=== PATIENT | female | born 1985 | race Caucasian/White ===

== ENCOUNTER 2018-11-03 12:31 | Emergency (ER) | payer OTHER ==
[2018-11-03 12:44] VITALS: BP 102/57; PULSE 77; TEMP 98.1; BMI 28.5
--- NOTE | 2018-11-03 12:50 | PDOC ---
Attending Attestation - HPI HPI: 11/03/18 13:30 The patient is a 32 year old female with a past medical history of migraines here today for evaluation of migraine. The patient reports that she gets migraines about every 3 months and that one she currently has is worse than any other migraine she had. She reports being and reports that her other pregnancies were full term and were normal. She notes associated nausea and numbness over the back of head. Patient denies lightheadedness. Denies fever, chills. Denies chest pain, shortness of breath. Denies vomiting, diarrhea, abdominal pain. Allergies: NKA - Medical Decision Making 11/03/18 13:30 Documentation prepared by KISHORE Romo, acting as medical assistant cardiology for Jaqueline Matthew MD. <Victor M Linares - Last Filed: 11/03/18 13:30> - Resident Resident Name: Victor M Velasquez - ED Attending Attestation I have performed the following: I have examined & evaluated the patient, The case was reviewed & discussed with the resident, I agree w/resident's findings & plan, Exceptions are as noted - Physicial Exam PE: GENERAL: Awake, alert, and fully oriented, in no acute distress HEAD: No signs of trauma EYES: PERRLA, EOMI, sclera anicteric, conjunctiva clear ENT: Auricles normal inspection, hearing grossly normal, nares patent, oropharynx clear without exudates. Moist mucosa NECK: Normal ROM, supple, no lymphadenopathy, JVD, or masses. No meningismus. LUNGS: Breath sounds equal, clear to auscultation bilaterally. No wheezes, and no crackles HEART: Regular rate and rhythm, normal S1 and S2, no murmurs, rubs or gallops ABDOMEN: Soft, nontender, normoactive bowel sounds. No guarding, no rebound. No masses EXTREMITIES: Normal range of motion, no edema. No clubbing or cyanosis. No cords, erythema, or tenderness NEUROLOGICAL: Cranial nerves II through XII grossly intact. Normal speech, normal gait. Motor and sensation intact SKIN: Warm, Dry, normal turgor, no rashes or lesions noted. - Medical Decision Making Patient given IV tylenol and reglan in ED, with some relief, but not complete. Will discuss with neuro, as this is worse than her typical migraines and she is 30 WGA. <Jaqueline Matthew - Last Filed: 11/03/18 16:21>
[2018-11-03] MEDS ORDERED: ACETAMINOPHEN 1000 MG/100 ML VIAL (NON FORMULARY) IVPB ONE (13:31)
[2018-11-03] MEDS ORDERED: METOCLOPRAMIDE HCL INJECTION 10 MG/2 ML VIAL IVPUSH ONE (13:32)
[2018-11-03] MEDS ORDERED: SODIUM CHLORIDE 1,000 ML IV STA (13:32)
--- NOTE | 2018-11-03 13:39 | PDOC ---
History of Present Illness - General Chief Complaint: Headache Stated Complaint: HEADACHE Time Seen by Provider: 11/03/18 12:45 History Source: Patient Exam Limitations: No Limitations - History of Present Illness Initial Comments: Patient is a 32 y/o F (prior pregnancies resulted in full term without complication) w/ PMHx migraine, presents with migraine x 1 week. Pain has been unremitting and gotten progressively worse since onset, and is accompanied by photophobia. She began experiencing nausea and vomiting 5 days into symptoms and experienced aura yesterday. Pain is diffuse throughout the head without focality, however she additionally c/o numbness in the back of the head exacerbated by neck flexion; the last of these symptoms is divergent from her usual migraine presentation. She has taken Fioricet for the past 4 days without relief. Attempted therapy with sumatriptan but vomited it almost immediately. Denies any neck stiffness/rigidity/tenderness, denies any focal neurologic complaints, denies CP, dysuria, oliguria, edema. She is normotensive on presentation. In general she experiences migraine ~every three months. This is the first occurrence of migraine during this ; in prior two pregnancies, migraine occurred in the first trimester, was less severe, and was aborted with prednisone. Prednisone is also her usual migraine therapy when she is not . 11/03/18 13:33 Past History - Travel Traveled outside of the country in the last 30 days: No Close contact w/someone who was outside of country & ill: No - Past Medical History Allergies/Adverse Reactions: Allergies Allergy/AdvReac Type Severity Reaction Status Date / Time No Known Allergies Allergy Verified 11/03/18 12:42 Home Medications: Ambulatory Orders Butalb/Acetaminophen/Caffeine [Fioricet 50-300-40 mg Capsule] 1 each PO PRN PRN 11/03/18 Metoclopramide HCl 10 mg PO DAILY PRN 11/03/18 Vitamins (Sjr) - 1 tab PO DAILY 11/03/18 Asthma: No Cancer: No Cardiac Disorders: No Diabetes: No HTN: No Seizures: No Thyroid Disease: No - Suicide/Smoking/Psychosocial Hx Smoking History: Unknown if ever smoked Hx Alcohol Use: No Drug/Substance Use Hx: No Hx Substance Use Treatment: No Neuro Specific PMHX - Complaint Specific PMHX Glaucoma: No Herniated Disk: No Laminectomy: No Migraine: Yes Multiple Sclerosis: No Neuropathy: No TIA: No Review of Systems - Review of Systems Comments:: As per HPI 11/03/18 13:39 *Physical Exam - Vital Signs Last Vital Signs Temp Pulse Resp BP Pulse Ox 98.1 F 77 18 102/57 L 99 11/03/18 12:42 11/03/18 12:42 11/03/18 12:42 11/03/18 12:42 11/03/18 12:42 - Physical Exam Comments: Gen: A&Ox3, NAD HEENT: NC/AT, EOMI, MMM, no TTP of cranial/facial bones Neck: Supple, non-tender, no rigidity/stiffness, occipital numbness (but not pain) exacerbated by neck flexion CV: RRR no m/r/g Resp: CTA b/l Abd: soft, NT, ND Ext: 2+ pulses, wwp, no edema, no calf tenderness Neuro: margin analyst, motor, sensory systems w/o focal deficit Psych: normal mood, normal affect Skin: warm, dry, normal turgor 11/03/18 13:39 Moderate Sedation - Procedure Monitoring Vital Signs: Procedure Monitoring Vital Signs Temperature 98.1 F 11/03/18 12:42 Pulse Rate 77 11/03/18 12:42 Respiratory Rate 18 11/03/18 12:42 Blood Pressure 102/57 L 11/03/18 12:42 O2 Sat by Pulse Oximetry (%) 99 11/03/18 12:42 ED Treatment Course - LABORATORY CBC & Chemistry Diagram: 11/03/18 14:38 11/03/18 14:38 Medical Decision Making - Medical Decision Making Concerning etiologies for headache in include pre-eclampsia and intracranial bleed. Pre-eclampsia is ruled out by normotensive blood pressure. Absence of focal neurologic and meningeal signs is reassuring that there is no intracranial bleed. Imaging can therefore be deferred at this time. The patient has failed fioricet therapy and additionally can no longer safely take it at this time. Will treat with IV Reglan, IV acetaminophen, and IVF bolus at this time. Ordered CBC, CMP, UA. 11/03/18 13:43 Experiencing only partial relief with medication as per above. Will consult neurology. 11/03/18 15:07 All labs normal. D/w Dr. Chapman. No need for neuroimaging. Will give PO oxycodone and discharge with outpt neurology f/u. 11/03/18 18:03 D/w Dr. Damico. Will prescribe short course of Percocet and Reglan. 11/03/18 18:11 *DC/Admit/Observation/Transfer Diagnosis at time of Disposition: Migraine Qualifiers: Migraine type: with aura - Discharge Dispostion Disposition: HOME Condition at time of disposition: Stable - Referrals Referrals: Danika Chapman MD [Staff Physician] - Robbie Damico MD [Staff Physician] - - Patient Instructions Printed Discharge Instructions: DI for Migraine Additional Instructions: We have scheduled outpatient neurology followup for you with Dr. Chapman. Please see him at your earliest convenience within 1 week of discharge. Please follow up with your OBGYN Dr. Damico as well. We have prescribed a short course of Percocet to your pharmacy. Do not take more than 2 tablets per day. You may take tylenol with this medication. If your migraine significantly worsens, if nausea/vomiting worsen, if you develop any neurological symptoms such as focal weakness or numbness, if you develop any neck pain or stiffness, or develop any other new or concerning symptom, please return to the Emergency Department immediately. - Post Discharge Activity
[2018-11-03] MEDS ORDERED: METOCLOPRAMIDE HCL INJECTION 10 MG/2 ML VIAL ONE (14:24)
[2018-11-03] MEDS ORDERED: ACETAMINOPHEN INJECTION 100 ML IVPB ONE (14:24)
[2018-11-03 14:48] LABS: BASO % 0.3 % (0-2.0); EOS % 1.7 % (0-4.5); HEMATOCRIT 31.9 % (32.4-45.2); HEMOGLOBIN 11.2 GM/dL (10.7-15.3); LYMPH % 16.4 % (8-40); MCH 30.8 pg (25.7-33.7); MCHC 35.2 g/dl (32.0-36.0); MEAN CELL VOLUME 87.5 fl (80-96); MONO % 5.2 % (3.8-10.2); NEUT % 76.4 % (42.8-82.8); PLATELET COUNT 225 K/MM3 (134-434); RBC 3.64 M/mm3 (3.60-5.2); RDW 13.5 % (11.6-15.6)
[2018-11-03 15:22] LABS: ALBUMIN 2.8 g/dl (3.4-5.0); ALK PHOS 72 U/L (45-117); ANION GAP 6 MMOL/L (8-16); BILIRUBIN,TOTAL 0.4 mg/dL (0.2-1); BLOOD UREA NITROGEN 6 mg/dL (7-18); CALCIUM 7.3 mg/dL (8.5-10.1); CHLORIDE 107 mmol/L (98-107); CO2 25 mmol/L (21-32); CREATININE 0.4 mg/dL (0.55-1.3); GLUCOSE,RANDOM 77 mg/dL (74-106); POTASSIUM 3.7 mmol/L (3.5-5.1); SGOT/AST 13 U/L (15-37); SGPT/ALT 15 U/L (13-61); SODIUM 138 mmol/L (136-145); TOT PROT 5.8 g/dl (6.4-8.2)
[2018-11-03] MEDS ORDERED: oxyCODONE HCL 5 MG TABLET PO ONE (18:03)
--- NOTE | 2018-11-03 18:14 | PDOC ---
*Physical Exam - Vital Signs Last Vital Signs Temp Pulse Resp BP Pulse Ox 98.1 F 77 18 102/57 L 99 11/03/18 12:42 11/03/18 12:42 11/03/18 12:42 11/03/18 12:42 11/03/18 12:42 ED Treatment Course - LABORATORY CBC & Chemistry Diagram: 11/03/18 14:38 11/03/18 14:38 - ADDITIONAL ORDERS Additional order review: Laboratory Results 11/03/18 14:38 Sodium 138 Potassium 3.7 Chloride 107 Carbon Dioxide 25 Anion Gap 6 L BUN 6 L Creatinine 0.4 L Creat Clearance w eGFR > 60 Random Glucose 77 Calcium 7.3 L Total Bilirubin 0.4 AST 13 L ALT 15 Alkaline Phosphatase 72 Total Protein 5.8 L Albumin 2.8 L 11/03/18 14:38 RBC 3.64 MCV 87.5 MCHC 35.2 RDW 13.5 MPV 7.0 L D Neutrophils % 76.4 Lymphocytes % 16.4 D Monocytes % 5.2 Eosinophils % 1.7 D Basophils % 0.3 - Medications Given in the ED: ED Medications Discontinued Medications Generic Name Dose Route Start Last Admin Trade Name Yusufq PRN Reason Stop Dose Admin Acetaminophen 1,000 mg 11/03/18 13:31 11/03/18 14:36 Ofirmev Injection - IVPB 11/03/18 13:32 1,000 mg ONCE ONE Administration Sodium Chloride 1,000 mls @ 1,000 mls/hr 11/03/18 13:32 11/03/18 14:36 Normal Saline - IV 11/03/18 14:31 1,000 mls/hr ASDIR STA Administration Metoclopramide HCl 10 mg 11/03/18 13:32 11/03/18 14:36 Reglan Injection - IVPUSH 11/03/18 13:33 10 mg ONCE ONE Administration Medical Decision Making - Medical Decision Making 11/03/18 18:09 Dr Chapman came to see this patient who is 30 weeks and has examined her and does not feel imaging study is needed at this time I spoke with Dr Damico and he agrees with a few days of percocet and a RX for reglan -she is going to follow up with Dr Chapman *DC/Admit/Observation/Transfer Diagnosis at time of Disposition: Migraine Qualifiers: Migraine type: with aura - Discharge Dispostion Disposition: HOME Condition at time of disposition: Stable - Referrals Referrals: Robbie Damico MD [Staff Physician] - Danika Chapman MD [Staff Physician] - - Patient Instructions Printed Discharge Instructions: DI for Migraine Additional Instructions: We have scheduled outpatient neurology followup for you with Dr. Chapman. Please see him within 1 week of discharge. Please follow up with your OBGYN as well. If your migraine significantly worsens, if nausea/vomiting worsen, if you develop any neurological symptoms such as focal weakness or numbness, if you develop any neck pain or stiffness, or develop any other new or concerning symptom, please return to the Emergency Department immediately. - Post Discharge Activity
--- NOTE | 2018-11-03 18:18 | CON.NEURO ---
Consult Consult Specialty:: Adela Referred by:: ER - History of Present Illness History of Present Illness: this is a very pleasant 32-year-old right-handed female patient with no essential medical history presents to the hospital with chief complaint of one week of headache. Patient is 30 weeks Was Done in the Emergency Room Patient Was Evaluated by Her SINGER BACK TENDER Doctor Who Prescribed Fioricet. In the Emergency Room Patient with Hemodynamically Stable with No Fever No Neck stiffness no recent headaches no recent travel headache was 7 out of 10 after 1 g of Tylenol IV and Reglan. - History Source History Provided By: Patient - Past Medical History ...: Yes - Alcohol/Substance Use Hx Alcohol Use: No - Smoking History Smoking history: Unknown if ever smoked Home Medications - Allergies Allergies/Adverse Reactions: Allergies Allergy/AdvReac Type Severity Reaction Status Date / Time No Known Allergies Allergy Verified 11/03/18 12:42 - Home Medications Home Medications: Ambulatory Orders Butalb/Acetaminophen/Caffeine [Fioricet 50-300-40 mg Capsule] 1 each PO PRN PRN 11/03/18 Metoclopramide HCl 10 mg PO DAILY PRN 11/03/18 Vitamins (Sjr) - 1 tab PO DAILY 11/03/18 Family Disease History - Family Disease History Family History: Denies (migraine of stroke) Review of Systems - Review of Systems Constitutional: reports: No Symptoms Eyes: reports: No Symptoms, Photophobia HENT: reports: No Symptoms Neurological: reports: Headache, Incoordination, Numbness, Parasthesia Physical Exam-Neuro Vital Signs: Vital Signs Temperature 98.1 F 11/03/18 12:42 Pulse Rate 77 11/03/18 12:42 Respiratory Rate 18 11/03/18 12:42 Blood Pressure 102/57 L 11/03/18 12:42 O2 Sat by Pulse Oximetry (%) 99 11/03/18 12:42 Constitutional: Yes: Well Nourished Neck: Yes: WNL Labs: CBC, BMP 11/03/18 14:38 11/03/18 14:38 - Neuro Exam Level Of Consciousness: Yes: Oriented to Person, Oriented to Place, Oriented to Time Eyes: Yes: PERRLA Speech: WNL Dominant Hand: Left Cranial Nerves II-XII Intact: Yes Gag: Present DTR's: 1+ Left Bicep, 1+ Right Bicep Response to light touch: Normal Response to pain prick: Normal Response to temperature: Normal Response to vibration: Normal Motor Strength: 0/5: Left Leg, 1/5: Left Arm, 2/5: Left Leg, 3/5: Left Leg, 4/5 : Left Leg Problem List - Problems (1) Migraine Assessment/Plan: this is very common to see an exacerbation of history of migraine headache in the second to the third trimester of . Gross neurological examination is nonfocal. 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 I discussed this with the patient and the patient's significant other. Patient agreed not to have any CAT scan or MRI for the safety of the baby although the baby is 30 weeks and he's probably formed and well. One dosage of oxycodone. 2. Repeat magnesium. 3. Stop the Fioricet. 4. Continue vitamins. Follow-up with neurology as an outpatient. Many thanks for this kind neurological referral. Code(s): G43.909 - MIGRAINE, UNSP, NOT INTRACTABLE, WITHOUT STATUS MIGRAINOSUS Qualifiers: Migraine type: with aura
[2018-11-03] MEDS ORDERED: oxyCODONE HCL 5 MG TABLET ONE (18:37)
== END 2018-11-03 18:41 | disposition home or self-care (01) ==
LOC: JER 12:31
DX: G43.109 Migraine with aura, not intractable, without status migrainosus (principal)
CPT/HCPCS: 36415; 80053; 85025; 99282-25; J0131; J7030

== ENCOUNTER 2019-01-06 07:30 | Inpatient (IN) | payer BC, OTHER ==
[2019-01-06 08:34] VITALS: BMI 30.8
[2019-01-06 09:08] LABS: BASO % 0.4 % (0-2.0); EOS % 1.4 % (0-4.5); HEMATOCRIT 36.6 % (32.4-45.2); HEMOGLOBIN 12.5 GM/dL (10.7-15.3); LYMPH % 22.4 % (8-40); MCH 29.2 pg (25.7-33.7); MCHC 34.1 g/dl (32.0-36.0); MEAN CELL VOLUME 85.7 fl (80-96); MEAN PLT VOLUME 7.5 fl (7.5-11.1); MONO % 6.7 % (3.8-10.2); NEUT % 69.1 % (42.8-82.8); PLATELET COUNT 280 K/MM3 (134-434); RBC 4.27 M/mm3 (3.60-5.2); RDW 13.5 % (11.6-15.6); WHITE BLOOD COUNT 6.8 K/mm3 (4.0-10.0)
[2019-01-06 09:29] LABS: INR 0.92 (0.83-1.09); PROTHROMBIN TIME (PATIENT) 10.9 SEC (9.7-13.0)
[2019-01-06 09:32] LABS: ACTIVATED PTT 28.6 SECONDS (25.2-36.5)
[2019-01-06 09:39] LABS: ANION GAP 5 MMOL/L (8-16); BLOOD UREA NITROGEN 6 mg/dL (7-18); CALCIUM 8.6 mg/dL (8.5-10.1); CHLORIDE 104 mmol/L (98-107); CO2 24 mmol/L (21-32); CREATININE 0.5 mg/dL (0.55-1.3); GLUCOSE,RANDOM 74 mg/dL (74-106); SODIUM 134 mmol/L (136-145)
[2019-01-06] MEDS ORDERED: DINOPROSTONE 10 MG VAGINAL SUPPOSITORY VG ONE (09:39)
[2019-01-06] MEDS ORDERED: DEXTROSE 5%-LACTATED RINGERS 1,000 ML IV SCH (09:45)
--- NOTE | 2019-01-06 09:45 | HP ---
Past Medical History - Primary Care Physician PCP:: Robbie Damico - Admission Chief Complaint: 33yo P2 with at EGA 39w2d admitted for labor induction. History of Present Illness: Pt is not in labor and insisted on labor induction complicated by: Anxiety, migraines. Vaginal GBS (-) History Source: Patient, Medical Record Limitations to Obtaining History: No Limitations - Past Medical History GASKET FORMER: Yes: Migraine Cardiovascular: No: AFIB, Aneurysm, Aortic Insufficiency, Aortic Stenosis, CAD, CHF, Deep Vein Thrombosis, HTN, Hyperlipdemia, CT, Mitral Insufficiency, Mitral Stenosis, Murmur, Pulmonary Hypertension, Other Pulmonary: No: Asthma, Bronchitis, Cancer, COPD, O2 Dependent, Pneumonia, Previously Intubated, Pulmonary Embolus, Pulmonary Fibrosis, Sleep Apnea, Other Gastrointestinal: No: Ascites, Cancer, Constipation, Crohn's Disease, Diverticulitis, Diverticulosis, Esophageal Varices, Gastritis, GERD, GI Bleed, Hemorrhoids, Hiatal Hernia, Inflamatory Bowel Disease, Irritable Bowel Disease, Pancreatitis, Peptic Ulcer Disease, Ulcerative Colitis, Other Hepatobiliary: No: Cirrhosis, Cholelithiasis, Cholecystitis, Choledocholithiasis , Hepatitis A, Hepatitis B, Hepatitis C, Other Renal/: No: Renal Failure, Renal Inusuff, BPH, Cancer, Hematuria, Hemodialysis , Neurogenic Bladder, Renal Calculi, UTI, Other Reproductive: No: Ectopic , Endometriosis, Fibroids, PID, Polycystic Ovary Syndrome, Postmenopausal, Other ...: 5 ...Para: 2 ( x 2) ...Term: 0 ...: 0 ...Spon : 0 ...Induced : 2 ...Multiple Gestation: 0 ...LMP: 03/30/18 ... Weeks Gestation by Dates: 40.2 ...EDC by Dates: 01/04/19 ...EDC by Sono: 01/11/19 Heme/Onc: No: Anemia, B12 Deficiency, Bleeding Disorder, Cancer, Current Chemotherapy, Current Radiation Therapy, Hemochromatosis, Hypercoaguable State, Myeloproliferative Synd, Sickle Cell Disease, Sickle Cell Trait, Thrombocytopenia, Other Infectious Disease: No: AIDS, C-Diff, Herpes Zoster, HIV, MRSA, STD's, Tuberculosis, VREF, Other Psych: No: Addictions, Anxiety, Bipolar, Depression, Panic, Psychosis, Schizophrenia, Other Musculoskeletal: No: Bursitis, Chronic low back pain, Hemiparesis, Hemiplegia, Osteoarthritis, Paraplegia, Other Rheumatology: No: Fibromyalgia, Gout, Lupus, Rheumatoid Arthritis, Sarcoidosis, Vasculitis, Other ENT: No: Allergic Rhinitis, Sinusitis, Other Endocrine: No: Artemio's Disease, [place]'s Disease, Diabetes Insipidus, Diabetes Mellitus, Hyperparathyroidism, Hyperthyroidism, Hypothyroidism, Osteopenia, SIADH, Other Dermatology: No: Basal Cell, Cellulitis, Eczema, Melanoma, Psoriasis, Squamous Cell, Other - Past Surgical History Past Surgical History: Yes: None Hx Myomectomy: No Hx Transabdominal Cerclage: No - Smoking History Smoking history: Never smoked - Alcohol/Substance Use Hx Alcohol Use: No History of Substance Use: reports: None - Social History Usual Living Arrangement: Yes: With Significant Other, With Child ADL: Independent 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 History of Recent Travel: No Home Medications - Allergies Allergies/Adverse Reactions: Allergies Allergy/AdvReac Type Severity Reaction Status Date / Time No Known Allergies Allergy Verified 12/25/18 10:40 - Home Medications Home Medications: Ambulatory Orders Butalb/Acetaminophen/Caffeine [Fioricet 50-300-40 mg Capsule] 1 each PO PRN PRN 11/03/18 Metoclopramide HCl 10 mg PO DAILY PRN 11/03/18 Metoclopramide HCl [Reglan -] 10 mg PO BID #6 tablet 11/03/18 Oxycodone HCl/Acetaminophen [Percocet 5-325 mg Tablet] 1 tab PO BID PRN #4 tablet MDD 2 11/03/18 Vitamins (Sjr) - 1 tab PO DAILY 11/03/18 Family Disease History - Family Disease History Family Disease History: Diabetes: Mother (HTN, depression, migraines) Review of Systems - Review of Systems Constitutional: reports: No Symptoms Eyes: reports: No Symptoms HENT: reports: No Symptoms Neck: reports: No Symptoms Cardiovascular: reports: No Symptoms Respiratory: reports: No Symptoms Gastrointestinal: reports: No Symptoms Breasts: reports: No Symptoms Reported Musculoskeletal: reports: No Symptoms Integumentary: reports: No Symptoms Neurological: reports: No Symptoms Endocrine: reports: No Symptoms Hematology/Lymphatic: reports: No Symptoms Psychiatric: reports: No Symptoms Pain Intensity: 0 Physical Exam - Maternity Vital Signs: Vital Signs Temperature 97.8 F 01/06/19 09:00 Pulse Rate 107 H 01/06/19 09:00 Respiratory Rate 20 01/06/19 09:00 Blood Pressure 110/65 01/06/19 09:00 O2 Sat by Pulse Oximetry (%) Constitutional: Yes: Well Nourished, No Distress, Calm Eyes: Yes: WNL, Conjunctiva Clear HENT: Yes: WNL, Atraumatic, Normocephalic Neck: Yes: WNL, Supple, Trachea Midline Cardiovascular: Yes: WNL, Regular Rate and Rhythm Lungs: Clear to auscultation, Normal air movement Breast(s): Yes: WNL - Abdominal Exam/OB Fundal Height: 39 Number of Fetuses: Single Presentation: Vertex Contractions: No Monitor Mode: External Heart Rate (range): 140 Heart Rate Location: Midline Category: I Accelerations: Non-Uniform Decelerations: None - Vaginal Exam/OB Vaginal Bleediing: No Speculum Exam: No Dilatation (cm): 1 Effacement (%): 50 Amniotic Membrane Status: Intact Presentation: Vertex/Position Station: -4 (Adequate, gynecoid pelvimetry) - Physical Exam Musculoskeletal: Yes: WNL Extremities: Yes: WNL Edema: No Integumentary: Yes: WNL Deep Tendon Reflex Grade: Normal +2 ...Motor Strength: WNL Psychiatric: Yes: WNL, Alert, Oriented - Labs Lab Results: CBC, BMP 01/06/19 08:30 01/06/19 08:30 Hemorrhage Risk Assessment - Risk Factors Medium Risk Factors: Yes: None High Risk Factors: Yes: None Risk Score: 1 Risk Level: Medium Risk Imaging - Results Ultrasound: Report Reviewed Assessment/Plan 33yo P2 with at EGA 39w2d admitted for labor induction. Pt is not in labor. Fetus with Category I tracing. Adequate, gynecoid pelvimetry on exam. We had long discussion re: risks, benefits, and alternatives of labor induction. I explained the options of expectant management awaiting spontaneous labor, induction of labor, and elective section. The risks of uterine tachysystole, distress, uterine rupture, need for emergency C/S, hemorrhage, infection, scarring, etc. were discussed. We also discussed the risks of meconium aspiration, shoulder dystocia, and anesthesia options. The pt requested to proceed with induction. We discussed the alternative methods of induction with Cervidil, Cytotec, Folley ballon, and pitocin. The pt prefers Cervidil followed by pitocin, if needed.
[2019-01-06] MEDS ORDERED: BUTORPHANOL TARTRATE 1 MG/ML VIAL IVPB ONE (13:30)
[2019-01-06] MEDS ORDERED: PROMETHAZINE HCL 25 MG/1 ML VIAL IVPB ONE (13:30)
[2019-01-06] MEDS ORDERED: BUTORPHANOL TARTRATE 1 MG/ML VIAL ONE ×2 (14:03)
[2019-01-06] MEDS ORDERED: PROMETHAZINE HCL 25 MG/1 ML VIAL ONE (14:03)
[2019-01-06] MEDS ORDERED: FENTANYL/BUPIVACAINE/NS/PF - PCEA - 50 ML DISP.SYRIN EP ONE (16:43)
[2019-01-06] MEDS ORDERED: BUPIVACAINE HCL/PF 0.25% (2.5MG/ML) 10 ML VIAL ONE (17:02)
[2019-01-06] MEDS ORDERED: NALOXONE HCL 0.4 MG/ML VIAL IVPUSH PRN (18:14)
[2019-01-06] MEDS ORDERED: FENTANYL/BUPIVACAINE/NS/PF - PCEA - 50 ML DISP.SYRIN EP SCH (18:15)
[2019-01-06] MEDS ORDERED: ELECTROLYTE-148 SOLN 1,000 ML IV SCH ×2 (18:15)
[2019-01-06] MEDS ORDERED: LIDOCAINE HCL 1% PRESERVATIVE FREE - 30ML VIAL ONE (19:29)
[2019-01-06] MEDS ORDERED: OXYTOCIN 20 UNITS in 0.9% NS 20 UNIT/1,000 ML INFUS.BAG IV ONE (19:29)
[2019-01-06] MEDS ORDERED: BENZOCAINE 20% 57 GM BOTTLE TP PRN (20:25)
[2019-01-06] MEDS ORDERED: BENZOCAINE 28 GM HEMORRHOIDAL OINTMENT TP PRN (20:25)
[2019-01-06] MEDS ORDERED: BISACODYL 10 MG SUPP.RECT RC PRN (20:25)
[2019-01-06] MEDS ORDERED: METHYLERGONOVINE MALEATE 0.2 MG/1 ML AMP IM PRN (20:25)
[2019-01-06] MEDS ORDERED: WITCH HAZEL 50% (TUCKS) 40 PAD/JAR PAD TP PRN (20:25)
[2019-01-06] MEDS ORDERED: OXYTOCIN 20 UNITS in 0.9% NS 20 UNIT/1,000 ML INFUS.BAG IV SCH (20:30)
--- NOTE | 2019-01-07 02:09 | PN ---
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
[2019-01-07] MEDS: IBUPROFEN 600 MG TABLET (FP) PO PRN ×3 (05:54→21:36)
[2019-01-07] MEDS: ACETAMINOPHEN 325 MG TABLET (FP) PO PRN ×3 (05:55→21:35)
[2019-01-07 06:50] LABS: BASO % 0.2 % (0-2.0); EOS % 0.7 % (0-4.5); HEMATOCRIT 33.1 % (32.4-45.2); HEMOGLOBIN 11.4 GM/dL (10.7-15.3); LYMPH % 16.3 % (8-40); MCH 29.7 pg (25.7-33.7); MCHC 34.5 g/dl (32.0-36.0); MEAN CELL VOLUME 86.1 fl (80-96); MEAN PLT VOLUME 7.4 fl (7.5-11.1); MONO % 8.2 % (3.8-10.2); NEUT % 74.6 % (42.8-82.8); PLATELET COUNT 253 K/MM3 (134-434); RBC 3.85 M/mm3 (3.60-5.2); RDW 13.4 % (11.6-15.6); WHITE BLOOD COUNT 12.3 K/mm3 (4.0-10.0)
--- NOTE | 2019-01-07 08:02 | PN ---
Post Progress Note - Subjective Subjective: Patient without acute complaints. Reports tolerating oral intake without nausea or vomiting. Ambulating without dizziness. Denies fevers or chills. Pain well controlled with oral pain medication. Pumping/breast feeding without issue. Passing flatus, no BM. Post Day: 1 Type of Delivery: Vital Signs: Vital Signs Temperature 98.2 F 01/07/19 06:00 Pulse Rate 79 01/07/19 06:00 Respiratory Rate 18 01/07/19 06:00 Blood Pressure 108/55 L 01/07/19 06:00 O2 Sat by Pulse Oximetry (%) 100 01/06/19 19:30 Breast Exam: Yes: Soft Uterus: Yes: Fundus Firm, Fundus below umbilicus, Non-tender Abdomen/GI: Yes: Abdomen soft, Passing flatus, Tolerating PO Lochia: Yes: Rubra Lochia, amount: Small Extremities: Yes: Calves non-tender, Edema Perineum: Yes: Intact, Laceration (repair intact) Activity: Ambulating - Labs Labs: CBC WBC 12.3 K/mm3 (4.0-10.0) H 01/07/19 06:30 RBC 3.85 M/mm3 (3.60-5.2) 01/07/19 06:30 Hgb 11.4 GM/dL (10.7-15.3) 01/07/19 06:30 Hct 33.1 % (32.4-45.2) 01/07/19 06:30 MCV 86.1 fl (80-96) 01/07/19 06:30 MCH 29.7 pg (25.7-33.7) 01/07/19 06:30 MCHC 34.5 g/dl (32.0-36.0) 01/07/19 06:30 RDW 13.4 % (11.6-15.6) 01/07/19 06:30 Plt Count 253 K/MM3 (134-434) 01/07/19 06:30 MPV 7.4 fl (7.5-11.1) L 01/07/19 06:30 Absolute Neuts (auto) 9.2 K/mm3 (1.5-8.0) H 01/07/19 06:30 Neutrophils % 74.6 % (42.8-82.8) 01/07/19 06:30 Lymphocytes % 16.3 % (8-40) D 01/07/19 06:30 Monocytes % 8.2 % (3.8-10.2) 01/07/19 06:30 Eosinophils % 0.7 % (0-4.5) 01/07/19 06:30 Basophils % 0.2 % (0-2.0) 01/07/19 06:30 Nucleated RBC % 0 % (0-0) 01/07/19 06:30 Assessment/Plan 33yo P3 s/p , doing well stable, afebrile. Asymptomatic for anemia. care instructions reviewed. Continue routine care. Ambulation encouraged Discharge instruction reviewed.
--- NOTE | 2019-01-07 08:05 | DS ---
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.Post : Yes: Uterus firm, Uterus non-tender, Slight lochia rubra Breast(s): Yes: WNL Musculoskeletal: Yes: WNL Extremities: Yes: WNL Edema: Yes Edema: LLE: Trace, RLE: Trace Integumentary: Yes: WNL Neurological: Yes: WNL, Alert, Oriented ...Motor Strength: WNL Psychiatric: Yes: WNL, Alert, Oriented Labs: CBC, BMP 01/07/19 06:30 01/06/19 08:30 Delivery - Delivery Vaginal Delivery: No Problems, Spontaneous Type of Anesthesia: Local, Epidural Episiotomy/Laceration: Midline, Perineal Extension/lac, 2nd degree EBL (cc): 300 Delivery, Single - Stages of Labor Date 1st Stage Initiatied: 01/06/19 Time 1st Stage Initiated: 17:15 Date 2nd Stage Initiated: 01/06/19 Time 2nd Stage Initiated: 19:34 Date of Delivery: 01/06/19 Time of Delivery: 19:41 Time Placenta Delivered: 19:45 Placenta: Yes: Spontaneous, Normal Configuration - Condition of Infant Histotechnologist/Tabular Typist Present: No Gender: Female Weight: 3.317 kg Position: Left, OA Total Hours ROM (Hrs/Mins): 30MIN - 1 Minute Total Score: 9 5 Minutes Total Score: 9 - Feeding Plan Initial Plan: Elected not to breastfeed exclusively throughout hospitalization Benefits of Exclusively reinforced: Yes Remarks - Remarks Remarks: Normal Vaginal delivery w/o complications. Discharge Summary Reason For Visit: IOL at EGA 39w2d, labor induction, anxiety Procedures: Principal: Other Procedures: Repair perineal OB laceration Hospital Course: Normal vaginal delivery and recovery Condition: Good - Instructions Diet, Activity, Other Instructions: Physical activity Resume your normal everyday activity as tolerated no heavy lifting or exercise until seen by your surgeon. You may walk unlimited rickey of and climb stairs. You may resume driving the car when you feel safe and comfortable behind the wheel. No sexual activity as instructed. Wound care If you have a bandage, leave it on, and keep dry for 48-72 hours. After that time discard the outer bandage. If they are tapes on the skin under the out of bandage leave them in place. They will peel off in the next 7 to 10 days. Do Not Peel them off. You may shower the day after surgery. If there are tapes present on the skin, you may shower over them. Diet There are no dietary restrictions. Eat healthy, high-fiber foods. Drink 6 to 8 glasses of liquid each day. This will assist in keeping your bowels are regular. Pain management You may take Tylenol or acetaminophen or Ibuprofen (for example, Motrin, Advil etc.) from my pain prescription medication is ordered should be taken as prescribed for moderate to severe pain. Call MD for any of the following: Severe pain not relieved by medication Fever of 101 or higher Excessive bleeding or drainage on dressing Inability to urinate Referrals: Robbie Damico MD [Staff Physician] - Disposition: HOME - Home Medications Comprehensive Discharge Medication List: Ambulatory Orders Vitamins (Sjr) - 1 tab PO DAILY 11/03/18
[2019-01-07] MEDS: PRENATAL VITAMINS W/ FOLIC ACID TABLET (FP) PO SCH (09:18)
[2019-01-07] MEDS ORDERED: SENNOSIDES/DOCUSATE COMBO (SENNA PLUS) TABLET (UD) PO PRN (22:00)
[2019-01-08] MEDS: IBUPROFEN 600 MG TABLET (FP) PO PRN ×2 (05:10→11:29)
[2019-01-08] MEDS: ACETAMINOPHEN 325 MG TABLET (FP) PO PRN ×2 (05:10→11:30)
--- NOTE | 2019-01-08 08:12 | PN ---
Post Progress Note - Subjective Subjective: Patient without acute complaints. Reports tolerating oral intake without nausea or vomiting. Ambulating without dizziness. Denies fevers or chills. Pain well controlled with oral pain medication. Passing flatus. Post Day: 2 Type of Delivery: Vital Signs: Vital Signs Temperature 98.2 F 01/07/19 22:00 Pulse Rate 78 01/07/19 22:00 Respiratory Rate 18 01/07/19 22:00 Blood Pressure 116/60 01/07/19 22:00 O2 Sat by Pulse Oximetry (%) 100 01/06/19 19:30 Breast Exam: Yes: Soft Uterus: Yes: Fundus Firm, Fundus below umbilicus Abdomen/GI: Yes: Abdomen soft, Passing flatus, Tolerating PO. No: Abdominal Distention, Tender Lochia: Yes: Serosa Lochia, amount: Small Extremities: Yes: Calves non-tender. No: Edema Activity: Ambulating - Labs Labs: CBC WBC 12.3 K/mm3 (4.0-10.0) H 01/07/19 06:30 RBC 3.85 M/mm3 (3.60-5.2) 01/07/19 06:30 Hgb 11.4 GM/dL (10.7-15.3) 01/07/19 06:30 Hct 33.1 % (32.4-45.2) 01/07/19 06:30 MCV 86.1 fl (80-96) 01/07/19 06:30 MCH 29.7 pg (25.7-33.7) 01/07/19 06:30 MCHC 34.5 g/dl (32.0-36.0) 01/07/19 06:30 RDW 13.4 % (11.6-15.6) 01/07/19 06:30 Plt Count 253 K/MM3 (134-434) 01/07/19 06:30 MPV 7.4 fl (7.5-11.1) L 01/07/19 06:30 Absolute Neuts (auto) 9.2 K/mm3 (1.5-8.0) H 01/07/19 06:30 Neutrophils % 74.6 % (42.8-82.8) 01/07/19 06:30 Lymphocytes % 16.3 % (8-40) D 01/07/19 06:30 Monocytes % 8.2 % (3.8-10.2) 01/07/19 06:30 Eosinophils % 0.7 % (0-4.5) 01/07/19 06:30 Basophils % 0.2 % (0-2.0) 01/07/19 06:30 Nucleated RBC % 0 % (0-0) 01/07/19 06:30 Assessment/Plan 33 yo PPD # 2 s/p , afebrile, vital signs stable, for discharge home today 1. Patient stable for discharge home today. 2. Patient encouraged to contact MD for: - Severe pain not controlled by oral pain medication - Fevers or chills - Nausea or vomiting, intolerance of oral intake 3. Patient to follow up in office in 4-6 weeks for visit
[2019-01-08 09:34] VITALS: BP 108/67; PULSE 66; TEMP 98.3
[2019-01-08] MEDS: PRENATAL VITAMINS W/ FOLIC ACID TABLET (FP) PO SCH (09:54)
== END 2019-01-08 13:40 | disposition home or self-care (01) | DRG 807 ==
LOC: JLDR 07:30 → J3W 22:00
PROVIDERS: ADMIT Obstetrics & Gynecology; ATTEND Obstetrics & Gynecology
PROC: 10E0XZZ Delivery of Products of Conception, External Approach (ICD-10-PCS; principal; 2019-01-06)
PROC: 0KQM0ZZ Repair Perineum Muscle, Open Approach (ICD-10-PCS; 2019-01-06)
DX: O99.02 Anemia complicating childbirth (principal); Z37.0 Single live birth; O70.1 Second degree perineal laceration during delivery; D64.9 Anemia, unspecified; Z3A.39 39 weeks gestation of pregnancy
CPT/HCPCS: 36415; 59409; 80048; 85025; 85610; 85730; 86593; 86850; 86900; 86901

== ENCOUNTER 2019-02-18 16:40 | Emergency (ER) | payer BC ==
--- NOTE | 2019-02-18 17:24 | PDOC ---
Rapid Medical Evaluation Time Seen by Provider: 02/18/19 17:21 Medical Evaluation: Allergies Allergy/AdvReac Type Severity Reaction Status Date / Time No Known Allergies Allergy Verified 12/25/18 10:40 02/18/19 17:22 HPI: Vaginal bleeding x1 day 2 pads an hour post pardum sent by Ob, 1st period post pardum PE: No gross deficits ORDERS: Labs Discharge Disposition - Diagnosis Vaginal bleeding - Referrals - Patient Instructions - Post Discharge Activity
[2019-02-18 17:30] VITALS: BP 102/66; PULSE 72; TEMP 97.5; BMI 28.3
[2019-02-18 17:54] LABS: BASO % 0.6 % (0-2.0); EOS % 4.7 % (0-4.5); HEMATOCRIT 39.3 % (32.4-45.2); MCH 28.7 pg (25.7-33.7); MCHC 33.1 g/dl (32.0-36.0); MEAN CELL VOLUME 86.9 fl (80-96); MEAN PLT VOLUME 7.2 fl (7.5-11.1); MONO % 6.3 % (3.8-10.2); NEUT % 49.4 % (42.8-82.8); PLATELET COUNT 278 K/MM3 (134-434); RBC 4.53 M/mm3 (3.60-5.2); RDW 13.8 % (11.6-15.6); WHITE BLOOD COUNT 6.2 K/mm3 (4.0-10.0)
[2019-02-18 17:56] LABS: HCG,QUALITATIVE URINE Negative
--- NOTE | 2019-02-18 17:56 | PDOC ---
History of Present Illness - General Chief Complaint: Vaginal Bleeding Stated Complaint: SENT BY PCP/VAGINAL BLEEDING Time Seen by Provider: 02/18/19 17:21 History Source: Patient - History of Present Illness Timing/Duration: reports: getting worse Past History - Past Medical History Allergies/Adverse Reactions: Allergies Allergy/AdvReac Type Severity Reaction Status Date / Time No Known Allergies Allergy Verified 02/18/19 17:22 Home Medications: Ambulatory Orders Vitamins (Sjr) - 1 tab PO DAILY 11/03/18 Asthma: No Cancer: No Cardiac Disorders: No COPD: No Diabetes: No HTN: No Seizures: No Thyroid Disease: No - Reproductive History (#): 3 Para: 2 - Immunization History Immunization Up to Date: Yes - Suicide/Smoking/Psychosocial Hx Smoking History: Never smoked Information on smoking cessation initiated: No Hx Alcohol Use: No Drug/Substance Use Hx: No Hx Substance Use Treatment: No Review of Systems - Review of Systems Constitutional: No: Fever ABD/GI: Yes: Abdominal cramping. No: Diarrhea, Nausea, Vomiting : No: Dysuria *Physical Exam - Vital Signs Last Vital Signs Temp Pulse Resp BP Pulse Ox 97.5 F L 72 16 102/66 99 02/18/19 17:22 02/18/19 17:22 02/18/19 17:22 02/18/19 17:22 02/18/19 17:22 - Physical Exam General Appearance: Yes: Appropriately Dressed. No: Apparent Distress HEENT: positive: Normal Voice Neck: positive: Supple Respiratory/Chest: negative: Respiratory Distress Gastrointestinal/Abdominal: positive: Soft. negative: Tender Musculoskeletal: negative: CVA Tenderness Integumentary: positive: Dry, Warm Neurologic: positive: Fully Oriented, Alert, Normal Mood/Affect ED Treatment Course - LABORATORY CBC & Chemistry Diagram: 02/18/19 17:30 Medical Decision Making - Medical Decision Making 02/18/19 17:53 33 yo F, no sig hx, (s/p 1 elec AB), s/p >1 month ago, here w/ vaginal bleeding. Per pt, had some vaginal bleeding immediately following delivery that resolved, but states she started bleeding again yesterday and that bleeding worsened today. Patient states she also has some abdominal cramping yesterday which is typical when she has her menstruation and has since resolved. States she called her COMMERCIAL CREDIT SPECIALIST who told her to come to the ER for blood work. Patient denies any dizziness, weakness, dysuria, nausea, vomiting, fever or chills See exam Vaginal bleeding ?menstruation s/p > 1 month ago w/ no immediate complications No abd pain currently and no dizziness/weakness Stable and well hernán w/ benign abd here -labs -anticipate dc w/ COMMERCIAL CREDIT SPECIALIST f/u 02/18/19 18:04 02/18/19 18:44 Labs unremarkable. Patient remained stable here. Will DC to follow-up with her COMMERCIAL CREDIT SPECIALIST. *DC/Admit/Observation/Transfer Diagnosis at time of Disposition: Vaginal bleeding - Discharge Dispostion Disposition: HOME Condition at time of disposition: Stable - Referrals Referrals: Noe Sharma [Primary Care Provider] - - Patient Instructions Additional Instructions: Your labs were normal today Please follow up with your COMMERCIAL CREDIT SPECIALIST tomorrow Return for worsening of symptoms - Post Discharge Activity
[2019-02-18 17:57] LABS: EPI CELLS 4.8 /HPF (0-5/HPF); URINE APPEARANCE TURBID; URINE BACTERIA 1.4 /hpf (NEGATIVE); URINE BILIRUBIN 1+ (NEGATIVE); URINE CASTS 12 /lpf (0-8); URINE COLOR RED; URINE GLUCOSE (UA) NEGATIVE (NEGATIVE); URINE KETONE NEGATIVE (NEGATIVE); URINE LEUK ESTERASE 2+ (NEGATIVE); URINE NITRITE NEGATIVE (NEGATIVE); URINE PROTEIN 1+ (NEGATIVE); URINE RBC 4784 /hpf (0-4); URINE WBC 17 /hpf (0-5)
[2019-02-18 19:29] LABS: INR 0.92 (0.83-1.09); PROTHROMBIN TIME (PATIENT) 10.8 SEC (9.7-13.0)
== END 2019-02-18 18:56 | disposition home or self-care (01) ==
LOC: JER 16:40
DX: N93.9 Abnormal uterine and vaginal bleeding, unspecified (principal)
CPT/HCPCS: 36415; 81003; 84703; 85025; 85610; 86850; 86900; 86901; 99283-25